=== PATIENT | female | born 1950 | race Caucasian/White ===

== ENCOUNTER 2018-03-10 01:06 | Emergency (ER) | payer MEDICARE, OTHER ==
[~2018-03-10] VITALS: Ht 177.8 cm; Wt 68.0 kg
[~2018-03-10 01:06] MED LIST: ALBU90OI6 INH; ASPI81CH PO; CLOP75 PO; Istalol2.5 ML OP; LATA.005SO; LEVSOD100 PO; Norco 10-325 T1 EACH PO; PRED1SU BOTHEYES; Prednisone20 MG PO; SIMV10 PO; TIMO.5OPS OD; TIMO.5OPS OU; Zofran Odt8 MG SL
[2018-03-10] MEDS ORDERED: PANT20 (02:01)
[2018-03-10] MEDS ORDERED: Advair Hfa 230-12 GM (02:02)
[2018-03-10] MEDS ORDERED: TIMO10T (02:02)
[2018-03-10] MEDS ORDERED: MONT4 (02:02)
[2018-03-10] MEDS ORDERED: QVAR REDIHALE10.6 G1 INH (02:13)
[2018-03-10 02:16] LABS: BASOPHILS ABSOLUTE AUTO 0.03 K/mm3 (0.00-0.23); BASOPHILS PERCENT AUTO 1 % (0-2); EOSINOPHILS ABSOLUTE AUTO 0.13 K/mm3 (0.00-0.68); EOSINOPHILS PERCENT AUTO 2 % (0-6); Hematocrit 26.8 % (33.0-51.0); Hemoglobin 9.2 g/dL (11.5-16.0); IMMATURE GRAN ABSOLUTE AUTO 0.01 K/mm3 (0.00-0.10); IMMATURE GRAN PERCENT AUTO 0 % (0-1); LYMPHOCYTES ABSOLUTE AUTO 1.91 K/mm3 (0.84-5.20); LYMPHOCYTES PERCENT AUTO 34 % (21-46); MONOCYTES ABSOLUTE AUTO 0.72 K/mm3 (0.16-1.47); MONOCYTES PERCENT AUTO 13 % (4-13); Mean Corpuscular HGB 32.9 pg (26.0-34.0); Mean Corpuscular HGB Conc 34.3 g/dL (31.5-36.5); Mean Corpuscular Volume 96 fL (80-100); Mean Platelet Volume 10.8 fL (9.1-12.4); NEUTROPHILS ABSOLUTE AUTO 2.79 K/mm3 (1.96-9.15); NEUTROPHILS PERCENT AUTO 50 % (41-73); Platelet Count 352 K/mm3 (150-400); RDW Coefficient Variation 11.9 % (11.7-14.2); RDW Standard Deviation 40.9 fL (35.1-46.3); White Blood Cell Count 5.59 K/mm3 (4.00-11.30)
[2018-03-10 02:28] LABS: Alanine Aminotransfer (ALT/SGP 31 U/L (12-78); Albumin, Blood 3.4 g/dL (3.4-5.0); Albumin/Globulin Ratio 1.1 (0.8-1.8); Alk Phos 46 U/L (50-136); Anion Gap 5 mmol/L (6-16); Aspartate Aminotrans (AST/SGOT 27 U/L (12-37); Bilirubin, Total 0.3 mg/dL (0.1-1.0); Blood Urea Nitrogen 7 mg/dL (8-24); Bun/Creatinine Ratio 12.2 (12.0-20.0); CO2, Blood 28 mmol/L (21-32); Calcium, Blood 8.3 mg/dL (8.5-10.1); Chloride, Blood 109 mmol/L (98-108); Creatinine, Blood 0.57 mg/dL (0.40-1.00); Globulin, Blood 3.1 g/dL (2.2-4.0); Glomerular Filtration Rate >60 (60-); Glucose, Blood 113 mg/dL (70-99); Magnesium, Blood 2.1 mg/dL (1.6-2.4); Potassium, Blood 3.3 mmol/L (3.5-5.5); Sodium, Blood 142 mmol/L (136-145); Total Protein, Blood 6.5 g/dL (6.4-8.2)
== END 2018-03-10 04:06 | disposition home or self-care (01) ==
LOC: ER 01:06
PROVIDERS: Emergency Medicine
DX: R10.31 Right lower quadrant pain (principal); Z79.899 Other long term (current) drug therapy; Z86.73 Personal history of transient ischemic attack (TIA), and cerebral infarction without residual deficits; Z87.891 Personal history of nicotine dependence
CPT/HCPCS: 36415; 71045; 74018; 80053; 83690; 83735; 85025

== ENCOUNTER 2024-11-04 11:57 | Inpatient (IN) | payer MEDICARE ==
[~2024-11-04] VITALS: Ht 177.8 cm; Wt 56.4 kg
[~2024-11-04 11:57] MED LIST changes: +Advair Hfa 230-12 GM; +MONT10T PO; +PANT20; +QVAR REDIHALE10.6 G1 INH; +TIMO10T
[2024-11-04 12:49] LABS: BASOPHILS ABSOLUTE AUTO 0.01 K/mm3 (0.00-0.23); BASOPHILS PERCENT AUTO 0 % (0-2); EOSINOPHILS PERCENT AUTO 0 % (0-6); Hematocrit 41.2 % (33.0-51.0); Hemoglobin 13.7 g/dL (11.5-16.0); IMMATURE GRAN ABSOLUTE AUTO 0.03 K/mm3 (0.00-0.10); IMMATURE GRAN PERCENT AUTO 0 % (0-1); LYMPHOCYTES ABSOLUTE AUTO 0.75 K/mm3 (0.84-5.20); LYMPHOCYTES PERCENT AUTO 9 % (21-46); MONOCYTES ABSOLUTE AUTO 1.01 K/mm3 (0.16-1.47); MONOCYTES PERCENT AUTO 12 % (4-13); Mean Corpuscular HGB 31.9 pg (26.0-34.0); Mean Corpuscular HGB Conc 33.3 g/dL (31.5-36.5); Mean Corpuscular Volume 96 fL (80-100); Mean Platelet Volume 9.8 fL (9.1-12.4); NEUTROPHILS ABSOLUTE AUTO 6.98 K/mm3 (1.96-9.15); NEUTROPHILS PERCENT AUTO 80 % (41-73); Platelet Count 351 K/mm3 (150-400); RDW Coefficient Variation 12.2 % (11.7-14.2); RDW Standard Deviation 43.5 fL (35.1-46.3); Red Blood Cell Count 4.29 M/mm3 (3.80-5.20); White Blood Cell Count 8.78 K/mm3 (4.00-11.30)
[2024-11-04 13:09] LABS: Albumin, Blood 3.5 g/dL (3.4-5.0); Albumin/Globulin Ratio 0.9 (0.8-1.8); Bilirubin, Total 0.7 mg/dL (0.1-1.0); Bun/Creatinine Ratio 32.9 (12.0-20.0); Calcium, Blood 9.2 mg/dL (8.5-10.1); Creatinine, Blood 0.52 mg/dL (0.40-1.00); Globulin, Blood 3.7 g/dL (2.2-4.0); Potassium, Blood 3.5 mmol/L (3.5-5.5); Total Protein, Blood 7.2 g/dL (6.4-8.2)
[2024-11-04] MEDS ORDERED: NS 1,000 ML IV SCH (14:10)
[2024-11-04 15:56] LABS: Source, Urine Clean Catch
[2024-11-04 16:05] LABS: Appearance, Urine Hazy (Clear); Bilirubin, Urine Neg (Neg); Blood, Urine 1+ (Neg); Glucose Qualitative, Urine Neg (Neg); Ketones, Urine 2+ (Neg); Leukocyte Esterase, Urine 3+ (Neg); Nitrite, Urine Pos (Neg); Protein, Urine 2+ (Neg); Urobilinogen, Urine NORM (Normal); pH, Urine 6.5 (5.0-8.0)
[2024-11-04 16:15] LABS: Color, Urine Pale Yellow (P-Yellow)
[2024-11-04 16:17] LABS: Bacteria Many /hpf; Hyaline Casts 0-2 /lpf (0-2); Renal Epithelial Rare /hpf (0-Rare); Squamous Epithelial Cells Many /hpf (Few); Transitional Epithelial Cells Mod /hpf (0-Rare)
[2024-11-04 16:19] LABS: Yeast/Fungi Urine Rare /hpf
[2024-11-04] MEDS ORDERED: CefTRIAXone Sodium 1,000 MG in NS 100 ML IV ONE (16:25)
[2024-11-04] MEDS ORDERED: FLU VACC TS2024-25(6MOS UP)/PF 45 MCG/0.5 ML SYRINGE IM PRN (16:40)
[2024-11-04] MEDS ORDERED: Ondansetron 4 MG TAB PO PRN (16:40)
[2024-11-04] MEDS ORDERED: ZOCOR20 MG PO (18:43)
[2024-11-04] MEDS ORDERED: Celexa20 MG PO (18:44)
[2024-11-04] MEDS ORDERED: DONEPEZIL HCL10 MG PO (18:45)
[2024-11-04 19:39] VITALS: BP 131/76
[2024-11-04] MEDS ORDERED: Latanoprost 0.005% Opth Soln 2.5 ML BOTHEYES SCH (21:00)
[2024-11-05 04:37] VITALS: BP 139/76
--- NOTE | 2024-11-05 05:19 | NUR ---
Rn shift summary: Patient is confused. She has history of alz dementia. She is more confused with her UTI. Patient did well the beginning of shift. Her son stayed for a few hours and she was fine. She wanted to go home with him. She rested for a few hours then wanted to" go to her room and bed". Unable to reorient her, to being in the hospital, that we are nurses. Pt just becomes angry. Pt has also had hallucinations, thinking people are in the kitchen, breaking dishes. Pt did walk to the with the BLENDING KETTLE TENDER. BLENDING KETTLE TENDER states that pt was unsteady, bumping into the computer. pt voided, attends are dry. Pt has only tried to get out of bed 2-3 times. Bed alarm is on. Call light is in lap. Does not call. monitoring closely through out shift.
--- NOTE | 2024-11-05 07:37 | NUR ---
ASSUMED CARE OF PATIENT. DROWSY AND HAVING AUDITORY AND VISUAL HALLUCINATIONS DURING SHIFT-CHANGE REPORT. NO ACUTE NEEDS.
[2024-11-05 07:57] LABS: BASOPHILS ABSOLUTE AUTO 0.02 K/mm3 (0.00-0.23); BASOPHILS PERCENT AUTO 0 % (0-2); EOSINOPHILS ABSOLUTE AUTO 0.03 K/mm3 (0.00-0.68); EOSINOPHILS PERCENT AUTO 0 % (0-6); IMMATURE GRAN ABSOLUTE AUTO 0.01 K/mm3 (0.00-0.10); IMMATURE GRAN PERCENT AUTO 0 % (0-1); LYMPHOCYTES ABSOLUTE AUTO 1.11 K/mm3 (0.84-5.20); LYMPHOCYTES PERCENT AUTO 13 % (21-46); MONOCYTES ABSOLUTE AUTO 1.03 K/mm3 (0.16-1.47); MONOCYTES PERCENT AUTO 12 % (4-13); Mean Corpuscular HGB 32.4 pg (26.0-34.0); Mean Corpuscular HGB Conc 33.3 g/dL (31.5-36.5); Mean Corpuscular Volume 97 fL (80-100); Mean Platelet Volume 9.9 fL (9.1-12.4); NEUTROPHILS ABSOLUTE AUTO 6.15 K/mm3 (1.96-9.15); NEUTROPHILS PERCENT AUTO 74 % (41-73); Platelet Count 320 K/mm3 (150-400); RDW Coefficient Variation 12.3 % (11.7-14.2); RDW Standard Deviation 44.2 fL (35.1-46.3); Red Blood Cell Count 4.01 M/mm3 (3.80-5.20); White Blood Cell Count 8.35 K/mm3 (4.00-11.30)
[2024-11-05 07:58] VITALS: BP 130/76
[2024-11-05 08:21] LABS: Magnesium, Blood 1.7 mg/dL (1.6-2.4)
[2024-11-05 08:25] LABS: Albumin, Blood 3.1 g/dL (3.4-5.0); Albumin/Globulin Ratio 0.9 (0.8-1.8); Bilirubin, Total 0.9 mg/dL (0.1-1.0); Bun/Creatinine Ratio 22.5 (12.0-20.0); Calcium, Blood 8.8 mg/dL (8.5-10.1); Creatinine, Blood 0.49 mg/dL (0.40-1.00); Globulin, Blood 3.5 g/dL (2.2-4.0); Potassium, Blood 3.4 mmol/L (3.5-5.5); Total Protein, Blood 6.6 g/dL (6.4-8.2)
[2024-11-05] MEDS ORDERED: Timolol 0.25% Opth Soln 5 ml BOTHEYES SCH (09:00)
[2024-11-05] MEDS ORDERED: Enoxaparin 40 MG/0.4 ML SYR SC SCH (09:00)
[2024-11-05 14:57] VITALS: BP 114/69
[2024-11-05] MEDS ORDERED: CefTRIAXone Sodium 1,000 MG in NS 100 ML IV SCH (17:00)
[2024-11-05] MEDS ORDERED: NS 250 ML IV SCH (17:40)
[2024-11-05] MEDS ORDERED: LORazepam 2 MG/ML 1ML Injection IV ONE (17:40)
--- NOTE | 2024-11-05 18:15 | NUR ---
PATIENT HAS HAD VISITORS AT BEDSIDE MOST OF THE DAY. WHEN LEFT ALONE, SHE BECOMES AGITATED AND GETS OUT OF BED. WHEN ATTEMPTS MADE TO REDIRECT, SHE BECOMES AGITATED, BEGINS CURSING AT STAFF AND MAKING THREATS. REFUSED IV ABx DUE AT 1700. CALL TO DR ANDERSON AND GIVEN T.O. FOR LORAZEPAM 0.5MG NOW. ADMINISTERED. PT NOW RESTING; WOKEN WHEN ATTEMPTED TO PROVIDER ENGAGEMENT EXECUTIVE IV ABx.
[2024-11-05] MEDS ORDERED: LORazepam 2 MG/ML 1ML Injection IV PRN (18:45)
[2024-11-05] MEDS ORDERED: Ketorolac Tromethamine 15mg Vial IV PRN (19:10)
--- NOTE | 2024-11-05 19:17 | NUR ---
END OF SHIFT SUMMARY: ALERT. ORIENTED TO SELF, ONLY. LABILE AND AGIGATED MOST OF DAY UNLESS VISITORS AT BEDSIDE. DID NEED TO CALL FOR 0.5MG LORAZEPAM IV TO HELP CALM HER DOWN THIS EVENING AFTER THREATENING STAFF AND UNSAFETY ATTEMPTING TO AMBULATE. CONTINENT OF BOWEL AND BLADDER. ATAXIC GAIT; SBA. REFUSED MEDS AND TREATMENTS. MOANING OUTLOUD AND GRABBING AT MID-BACK. OBTAINED ORDER FOR IV PAIN MEDS. FAMILY AT BEDSIDE. BED IN LOWEST POSITION, CALL LIGHT WITHIN REACH, ALL NEEDS MET. REPORT TO ONCOMING NURSE.
[2024-11-05 19:43] VITALS: BP 137/74
[2024-11-06 02:23] VITALS: BP 130/79
--- NOTE | 2024-11-06 05:02 | NUR ---
SUMMARY: PT BEGAN SHIFT ORIENTED TO SELF, FAMILY AND PLACE ONLY. SHE WAS ANXIOUS AND AGGITATED WA BUT WAS VERY DROWSY AFTER RECEIVING ATIVAN ON DAY SHIFT. BED ALARM IS ON FOR IMPULSIVITY AND FALL RISK R/T ATAXIA W/INITIAL DIFFICULTY REDIRECTING. SHE SLEPT MAJORITY OF NOCTE BUT AWOKE THIS AM MUCH MORE ORIENTED, SENSICAL AND APPROPRIATE W/CARE. SHE WAS ABLE TO RECALL FALL AND INJURIES ENDURED, CONVEYED "RIB" PAIN THAT SHE SCORED AN 8 AND DESCRIBED IT CONSTANT THROBBING. TRAMADOL WAS PROVIDED AND PT REPORTED GOOD EFFECT. CAST REMAINS INTACT TO L.ARM AND BRUISE OBSERVED TO L.EYE ORBIT. SHE'S NOW PLEASANT AND COOPERATIVE, AMBULATING TO BATHROOM W/O TROUBLE FOLLOWING INSTRUCTIONS. NO ONGOING S/S HALLUCINATIONS OR DELUSIONS AT THIS TIME. NO ACUTE CHANGES, VSS/AFEBRILE. WCTM AND REPORT TO DAY RN.
[2024-11-06] MEDS ORDERED: Levothyroxine Sodium 0.1 MG Tab PO SCH (06:00)
[2024-11-06 07:24] LABS: BASOPHILS ABSOLUTE AUTO 0.02 K/mm3 (0.00-0.23); BASOPHILS PERCENT AUTO 0 % (0-2); EOSINOPHILS ABSOLUTE AUTO 0.05 K/mm3 (0.00-0.68); EOSINOPHILS PERCENT AUTO 1 % (0-6); Hematocrit 36.3 % (33.0-51.0); Hemoglobin 12.4 g/dL (11.5-16.0); IMMATURE GRAN ABSOLUTE AUTO 0.01 K/mm3 (0.00-0.10); IMMATURE GRAN PERCENT AUTO 0 % (0-1); LYMPHOCYTES ABSOLUTE AUTO 1.32 K/mm3 (0.84-5.20); LYMPHOCYTES PERCENT AUTO 26 % (21-46); MONOCYTES ABSOLUTE AUTO 0.82 K/mm3 (0.16-1.47); MONOCYTES PERCENT AUTO 16 % (4-13); Mean Corpuscular HGB 32.6 pg (26.0-34.0); Mean Corpuscular HGB Conc 34.2 g/dL (31.5-36.5); Mean Corpuscular Volume 96 fL (80-100); Mean Platelet Volume 10.1 fL (9.1-12.4); NEUTROPHILS ABSOLUTE AUTO 2.89 K/mm3 (1.96-9.15); NEUTROPHILS PERCENT AUTO 57 % (41-73); Platelet Count 293 K/mm3 (150-400); RDW Coefficient Variation 12.5 % (11.7-14.2); RDW Standard Deviation 43.8 fL (35.1-46.3); White Blood Cell Count 5.11 K/mm3 (4.00-11.30)
[2024-11-06 07:44] LABS: Albumin, Blood 2.8 g/dL (3.4-5.0); Albumin/Globulin Ratio 0.9 (0.8-1.8); Bilirubin, Total 0.6 mg/dL (0.1-1.0); Bun/Creatinine Ratio 16.5 (12.0-20.0); Calcium, Blood 8.5 mg/dL (8.5-10.1); Creatinine, Blood 0.49 mg/dL (0.40-1.00); Globulin, Blood 3.2 g/dL (2.2-4.0); Potassium, Blood 3.6 mmol/L (3.5-5.5)
[2024-11-06 07:50] VITALS: BP 117/73
[2024-11-06] MEDS ORDERED: Clopidogrel Bisulfate 75 MG Tab PO SCH (09:00)
[2024-11-06] MEDS ORDERED: Atorvastatin 10 MG Tab PO SCH (09:00)
[2024-11-06] MEDS ORDERED: Citalopram Hydrobromide 20 MG Tab PO SCH (09:00)
[2024-11-06 15:03] VITALS: BP 100/65
[2024-11-06] MEDS ORDERED: Doxycycline Hyclate 100 MG TAB PO ONE (18:10)
--- NOTE | 2024-11-06 18:16 | NUR ---
SHIFT SUMMARY A&OX3, COOPERATIVE, PLEASEANT, SLIGHTLY CONFUSED BUT REDIRECTABLE. NO ACUTE EVENTS. CALLS APPROPRIATELY AND CAN MAKE NEEDS KNOWN WITH SMALL AMOUNT OF CUES. DENIES ANY CP/PRESSURE, HEADACHE, DIZZINESS, OR SOB. PAINFUL L SIDE, CASTED L ARM, AND ORBITAL BRUISING L EYE R/T TO RECENT FALL. DENIED NEED FOR ANY PAIN MEDS. PT/OT WORKED WITH PATIENT AND RECOMMENDED HOME WITH HH VS SNF. RAC IV LEAKED WITH DOSE OF ROCEPHIN. IV DC'D AND UNABLE TO PLACE ANOTHER IV. ORDERS FOR VIBRAMYCIN OT DOSE. APPETITE AND HYDRATION NOTED TO BE FAIR. PATIENT'S FAMILY AT BEDSIDE CURRENTLY. BED ALARM ON AND IN LOWEST POSITION. CALL LIGHT WITHIN REACH.
--- NOTE | 2024-11-06 18:59 | NUR ---
PATIENT'S R AC IV LEAKED. 2 DIFFERENT NURSES TRIED TO INSERT IV'S WITHOUT ANY LUCK. HOSPITALIST CALLED AND ORDERED 100MG DOXYCYCLINE PO ONCE AND OKAYED IV ABX TO BE HELD DUE TO NO IV ACCESS UNTIL REEVALUATION BY DAY MD IN THE AM.
[2024-11-06 19:32] VITALS: BP 124/77
[2024-11-07 02:53] VITALS: BP 118/83
--- NOTE | 2024-11-07 04:34 | NUR ---
SUMMARY: PT A/OX3 AND PLEASANT AND COOPERATIVE W/CARE. SHE'S BEEN ABLE TO CALL APPROPRIATELY TO SPECIFY NEEDS AND HASN'T SHOWN LITTLE IMPULSIVITY THIS SHIFT. PT IS MILDLY FORGETFULL AT TIMES BUT REORIENTS W/CUES AND IS ABLE TO FOLLOW INSTRUCTIONS. SHE'S UP W/SBA TO TOILET AND REPOSITIONS SELF IN BED. L.EYE ORBIT BRUISE OBSERVED AND L.ARM CAST IS INTACT. NO IV ACCESS AT THIS TIME AND DAY MD WAS AWARE, AUTHORIZING X1 DOSE DOXYCYCLINE PENDING REEVALUATION TODAY. NO ACUTE CHANGES, VSS/AFEBRILE. PLAN IS FOR HOME W/HOME HEALTH. WCTM AND REPORT TO DAY RN.
[2024-11-07 05:15] LABS: BASOPHILS ABSOLUTE AUTO 0.03 K/mm3 (0.00-0.23); BASOPHILS PERCENT AUTO 1 % (0-2); EOSINOPHILS ABSOLUTE AUTO 0.15 K/mm3 (0.00-0.68); EOSINOPHILS PERCENT AUTO 2 % (0-6); Hemoglobin 11.9 g/dL (11.5-16.0); IMMATURE GRAN ABSOLUTE AUTO 0.02 K/mm3 (0.00-0.10); IMMATURE GRAN PERCENT AUTO 0 % (0-1); LYMPHOCYTES ABSOLUTE AUTO 1.32 K/mm3 (0.84-5.20); LYMPHOCYTES PERCENT AUTO 21 % (21-46); MONOCYTES ABSOLUTE AUTO 0.96 K/mm3 (0.16-1.47); MONOCYTES PERCENT AUTO 15 % (4-13); Mean Corpuscular HGB 31.7 pg (26.0-34.0); Mean Corpuscular HGB Conc 33.1 g/dL (31.5-36.5); Mean Corpuscular Volume 96 fL (80-100); Mean Platelet Volume 10.2 fL (9.1-12.4); NEUTROPHILS ABSOLUTE AUTO 3.97 K/mm3 (1.96-9.15); NEUTROPHILS PERCENT AUTO 62 % (41-73); Platelet Count 285 K/mm3 (150-400); RDW Coefficient Variation 12.2 % (11.7-14.2); RDW Standard Deviation 43.1 fL (35.1-46.3); Red Blood Cell Count 3.75 M/mm3 (3.80-5.20); White Blood Cell Count 6.45 K/mm3 (4.00-11.30)
[2024-11-07 05:45] LABS: Albumin, Blood 2.7 g/dL (3.4-5.0); Albumin/Globulin Ratio 0.8 (0.8-1.8); Bilirubin, Total 0.4 mg/dL (0.1-1.0); Bun/Creatinine Ratio 27.7 (12.0-20.0); Calcium, Blood 8.5 mg/dL (8.5-10.1); Creatinine, Blood 0.47 mg/dL (0.40-1.00); Globulin, Blood 3.2 g/dL (2.2-4.0); Potassium, Blood 3.9 mmol/L (3.5-5.5); Total Protein, Blood 5.9 g/dL (6.4-8.2)
[2024-11-07 07:35] VITALS: BP 118/80
[2024-11-07] MEDS ORDERED: Amoxicillin/Clavulanate K 875 MG Tab PO SCH (08:00)
[2024-11-07] MEDS ORDERED: AMOCLA875 PO (12:27)
--- NOTE | 2024-11-07 16:21 | NUR ---
DISCHARGE NOTE PATIENT A/OX2, IMPULSIVE, CONFUSED AND AGITATED INTERMITTENTLY. PATIENT'S EX SPOUSE VISITED THIS AM. [facility]. PATIENT DENIES ANY PAIN THIS SHIFT. LEFT ARM CAST IN PLACE. ABLE TO AMBULATE WIHT STAND BY ASSISTANCE. 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 NO OTHER CONCERNS AT THIS TIME.
== END 2024-11-07 16:17 | DRG 689 ==
LOC: ER 11:57 → ERHOLD 17:03 → MEDS 17:03
PROVIDERS: Family Medicine; Student in an Organized Health Care Education/Training Program; ADMIT Internal Medicine
DX: N12 Tubulo-interstitial nephritis, not specified as acute or chronic (principal); G92.8 Other toxic encephalopathy; F02.B11 Dementia in other diseases classified elsewhere, moderate, with agitation; F05 Delirium due to known physiological condition; R44.1 Visual hallucinations; F32.A Depression, unspecified; J44.9 Chronic obstructive pulmonary disease, unspecified; E03.9 Hypothyroidism, unspecified; G47.00 Insomnia, unspecified; M19.90 Unspecified osteoarthritis, unspecified site; G30.9 Alzheimer's disease, unspecified; F02.B0 Dementia in other diseases classified elsewhere, moderate, without behavioral disturbance, psychotic disturbance, mood disturbance, and anxiety; E78.5 Hyperlipidemia, unspecified; B96.89 Other specified bacterial agents as the cause of diseases classified elsewhere; H40.9 Unspecified glaucoma; Z79.51 Long term (current) use of inhaled steroids; Z98.890 Other specified postprocedural states; Z90.81 Acquired absence of spleen; Z79.899 Other long term (current) drug therapy; Z79.01 Long term (current) use of anticoagulants; Z86.73 Personal history of transient ischemic attack (TIA), and cerebral infarction without residual deficits; Z79.890 Hormone replacement therapy; Z87.891 Personal history of nicotine dependence
CPT/HCPCS: 36415; 70450; 74177; 80053; 81001; 83735; 85025; 87077; 87086; 87147; 87186; 93005; 93010; 97116; 97162; 97165; 97530; 97535; 99285-25; A9270; J0696; J1650; J1885; J2060; J7030; Q9967

== ENCOUNTER → 2024-11-13 | Outpatient (CLI) | payer MEDICARE ==
[~2024-11-13] MED LIST changes: +AMOCLA875 PO; +Celexa20 MG PO; +DONEPEZIL HCL10 MG PO; +ZOCOR20 MG PO
== END | disposition home or self-care (01) ==
LOC: LAB SHORT 15:44 → LAB 15:44
DX: N39.0 Urinary tract infection, site not specified (principal)
CPT/HCPCS: 87086